=== PATIENT | female | born 1985 | race Caucasian/White ===

== ENCOUNTER 2017-07-10 14:30 | Emergency (ER) | payer OTHER ==
[~2017-07-10] VITALS: Ht 162.6 cm; Wt 86.0 kg
[~2017-07-10 14:30] MED LIST: IBUP-238 PO; Z.0.NO CURRENT MEDS
[2017-07-10 14:38] VITALS: BP 159/86; PULSE 119; RESP 18; TEMP 97.9; O2SAT 99
[2017-07-10] MEDS ORDERED: LIDOCAINE HCL 1% PF 30 ML VIAL INFIL ONE (15:00)
[2017-07-10] MEDS ORDERED: KETOROLAC TROMETHAMINE 30 MG/ML (IVP) VIAL IV PUSH ONE (15:00)
[2017-07-10] MEDS ORDERED: CLINDAMYCIN 600 MG/NS PREMIX 50 ML IV ONE (15:00)
[2017-07-10 15:56] LABS: AUTOMATED NEUTROPHIL # 9.6 TH/MM3 (1.8-7.7); BASOPHIL % 0.3 % (0.0-2.0); EOSINOPHIL # 0.1 TH/MM3 (0-0.4); EOSINOPHIL % 1.1 % (0.0-4.0); HEMATOCRIT 39.3 % (35.0-46.0); HEMOGLOBIN 13.3 GM/DL (11.6-15.3); LYMPH % 17.7 % (9.0-44.0); LYMPHOCYTE # 2.3 TH/MM3 (1.0-4.8); MEAN CORPUSCULAR HGB CONC 33.7 % (32.0-36.0); MEAN PLATELET VOLUME 8.6 FL (7.0-11.0); MONO % 6.4 % (0.0-8.0); MONOCYTE # 0.8 TH/MM3 (0-0.9); NEUT % 74.5 % (16.0-70.0); PLATELET COUNT 227 TH/MM3 (150-450); RED BLOOD COUNT 4.57 MIL/MM3 (4.00-5.30); RED CELL DISTRIBUTION WIDTH 13.9 % (11.6-17.2); WHITE BLOOD COUNT 12.9 TH/MM3 (4.0-11.0)
[2017-07-10 16:05] LABS: BICARBONATE 23.2 MEQ/L (21.0-32.0); CALCIUM 9.3 MG/DL (8.5-10.1); CREATININE 0.96 MG/DL (0.50-1.00); MAGNESIUM 2.3 MG/DL (1.5-2.5)
--- NOTE | 2017-07-10 16:07 | RADRPT ---
EXAM DATE: 07/10/2017 4:04 PM EDT AGE/SEX: 31 years / Female INDICATIONS: Left hand pain, no injury. CLINICAL DATA: This is the patient's initial encounter. Patient reports that signs and symptoms have been present for 1 day and indicates a pain score of 8/10. MEDICAL/SURGICAL HISTORY: None. None. COMPARISON: No prior [place] exams available for comparison. FINDINGS: Generalized soft tissue swelling. I see no radiopaque foreign body or fracture. Anatomic alignment. CONCLUSION: Generalized soft tissue swelling. Etiology not apparent. Electronically signed by: Flavio Simeon MD 07/10/2017 4:05 PM EDT
[2017-07-10] MEDS ORDERED: DICL75TA PO (16:43)
[2017-07-10] MEDS ORDERED: BACT800T5 PO (16:43)
[2017-07-10] MEDS ORDERED: CLIN150C14 PO (16:43)
--- NOTE | 2017-07-10 16:57 | PD ---
HPI Chief Complaint: Skin Problem Time Seen by Provider: 14:44 Travel History International Travel<30 days: No Contact w/Intl Traveler<30days: No Traveled to known affect area: No History of Present Illness HPI 31 year old female here for evaluation of infection to the left hand. Patient reports his started two days ago. Now having lesion to the nose. Tender and painful. History of abscesses. No IVDA. pain is 7/10. No fevers, chills or sweats. Up to date with tetanus. Has not seen anybody for this. No other medical issues. PFSH Past Medical History Blood Disorders: No Cancer: No Cardiovascular Problems: No Chemotherapy: No Diminished Hearing: No Endocrine: No Gastrointestinal Disorders: Yes (VOMITING) Genitourinary: No Immune Disorder: No Musculoskeletal: No Neurologic: No Psychiatric: No Reproductive: No Respiratory: No Immunizations Current: Yes Radiation Therapy: No Tetanus Vaccination: Unknown Influenza Vaccination: No ?: Not : 0 Para: 0 Miscarriage: 0 : 0 Past Surgical History Surgical History: No Previous Surgery AICD: No Arteriovenous Shunt: No Insulin Pump: No Joint Replacement: No Pacemaker: No Social History Alcohol Use: No Tobacco Use: Yes (OCC 02/10 DAY) Substance Use: No Allergies-Medications (Allergen,Severity, Reaction): Coded Allergies: No Known Allergies (Verified Adverse Reaction, Unknown, 07/10/17) Reported Meds & Prescriptions Reported Meds & Active Scripts Active Bactrim DS (Sulfamethoxazole-Trimethoprim) 800-160 Mg Tab 1 Tab PO BID 14 Days Clindamycin (Clindamycin HCl) 150 Mg Cap 300 Mg PO Q8HR [address] (Diclofenac Sodium) 75 Mg Tabdr 75 Mg PO BID PRN Review of Systems Except as stated in HPI: all other systems reviewed are Neg Physical Exam Narrative GENERAL: SKIN: Warm and dry. Has a 5 cm in diameter area of indurance and purulence on dorsal left hand. Tender to touch. Purulence noted. Erythema about 10 cms in diameter. No lymphadenopathy. Warm to touch. HEAD: Atraumatic. Normocephalic. EYES: Pupils equal and round. No scleral icterus. No injection or drainage. ENT: No nasal bleeding or discharge. Mucous membranes pink and moist. Tongue is mildine. No uvula deviation. patient has a circular erythematous papule on the bridge of the nose, about 0.5 cms in diameter. NECK: Trachea midline. No JVD. CARDIOVASCULAR: Regular rate and rhythm. RESPIRATORY: No accessory muscle use. Clear to auscultation. Breath sounds equal bilaterally. GASTROINTESTINAL: Abdomen soft, non-tender, nondistended. Hepatic and splenic margins not palpable. MUSCULOSKELETAL: Extremities without clubbing, cyanosis, or edema. No obvious deformities. NEUROLOGICAL: Awake and alert. No obvious cranial nerve deficits. Motor grossly within normal limits. Five out of 5 muscle strength in the arms and legs. Normal speech. PSYCHIATRIC: Appropriate mood and affect; insight and judgment normal. Data Data Last Documented VS Vital Signs Date Time Temp Pulse Resp B/P (MAP) Pulse Ox O2 Delivery O2 Flow Rate FiO2 07/10/17 14:38 97.9 119 18 159/86 (110) 99 Orders Orders Complete Blood Count With Diff (07/10/17 14:56) Basic Metabolic Panel (Bmp) (07/10/17 14:56) Blood Culture (07/10/17 14:56) Magnesium (Mg) (07/10/17 14:56) Wound Culture And Gram Stain (07/10/17 14:56) Iv Access Insert/Monitor (07/10/17 14:56) Lidocaine Pf 1% Inj (Xylocaine-Mpf 1% In (07/10/17 15:00) Clindamycin 600 Mg/Ns Premix (Cleocin 60 (07/10/17 15:00) Ketorolac Inj (Toradol Inj) (07/10/17 15:00) Hand, Complete ([id number]) (07/10/17 ) Ed Discharge Order (07/10/17 16:46) Labs Laboratory Tests Test 07/10/17 15:10 White Blood Count 12.9 TH/MM3 Red Blood Count 4.57 MIL/MM3 Hemoglobin 13.3 GM/DL Hematocrit 39.3 % Mean Corpuscular Volume 86.0 FL Mean Corpuscular Hemoglobin 29.0 PG Mean Corpuscular Hemoglobin Concent 33.7 % Red Cell Distribution Width 13.9 % Platelet Count 227 TH/MM3 Mean Platelet Volume 8.6 FL Neutrophils (%) (Auto) 74.5 % Lymphocytes (%) (Auto) 17.7 % Monocytes (%) (Auto) 6.4 % Eosinophils (%) (Auto) 1.1 % Basophils (%) (Auto) 0.3 % Neutrophils # (Auto) 9.6 TH/MM3 Lymphocytes # (Auto) 2.3 TH/MM3 Monocytes # (Auto) 0.8 TH/MM3 Eosinophils # (Auto) 0.1 TH/MM3 Basophils # (Auto) 0.0 TH/MM3 CBC Comment DIFF FINAL Differential Comment Blood Urea Nitrogen 12 MG/DL Creatinine 0.96 MG/DL Random Glucose 116 MG/DL Calcium Level 9.3 MG/DL Magnesium Level 2.3 MG/DL Sodium Level 139 MEQ/L Potassium Level 3.8 MEQ/L Chloride Level 104 MEQ/L Carbon Dioxide Level 23.2 MEQ/L Anion Gap 12 MEQ/L Estimat Glomerular Filtration Rate 68 ML/MIN MDM Medical Decision Making Medical Screen Exam Complete: Yes Emergency Medical Condition: Yes Medical Record Reviewed: Yes Interpretation(s) Last Impressions Hand X-Ray 07/10/17 0000 Signed Impressions: CONCLUSION: Generalized soft tissue swelling. Etiology not apparent. CBC & BMP Diagram 07/10/17 15:10 Calcium Level 9.3, Magnesium Level 2.3 Differential Diagnosis abscess vs cellulitis vs MRSA Narrative Course 31 yo female here for hand infection. Properly examined and found to have cellulitis and abscess to left dorsal hand. Labs and imaging ordered. I&D done as stated in procedure note after patient gave verbal concent. Given IV clindamycin. Case discussed with attending Dr Badillo who agrees with discharge. Will prescribe diclofenac sodium, bactrim and clindamyin. Recheck in 48 hours. F/u with PCP. See ED if worst. Procedures Procedure Narrative After the risks and benefits were discussed the following procedure was performed: INCISION AND DRAINAGE OF ABSCESS: The area was prepped and was sterilely draped. A subcutaneous wheal of 1 % Xylocaine with a total number 5 mL was used to anesthetize the area. The area was properly anesthetized. A number 11 scalpel was used to make a 1 -cm incision across the area of the abscess. Cultures were obtained. The abscess was drained an irrigated with normal saline. Quarter inch iodoform packing was placed in the wound. Sterile dressing applied. Patient advised to have packing removed in two days. Diagnosis Primary Impression: Abscess of hand, left Patient Instructions: General Instructions Additional Instructions: Take medication as prescribed. Follow up with PCP. Recheck in 48 hrs. See ED if worsening symptoms. Med/Other Pt SpecificInfo: Prescription(s) given, Wound Care Scripts Sulfamethoxazole-Trimethoprim (Bactrim DS) 800-160 Mg Tab 1 TAB PO BID for Infection for 14 Days, #28 TAB 0 Refills Prov: Bryan Badillo MD 07/10/17 Clindamycin (Clindamycin) 150 Mg Cap 300 MG PO Q8HR for Infection for 14 Days, CAP 0 Refills Prov: Bryan Badillo MD 07/10/[address] (Diclofenac Sodium DR) 75 Mg Tabdr 75 MG PO BID Y for PAIN SCALE 1 TO 10, #20 TAB 0 Refills Prov: Bryan Badillo MD 07/10/17 Disposition: 01 DISCHARGE HOME Condition: Stable Mu Parker Jul 10, 2017 16:57
[2017-07-10 17:19] VITALS: BP 145/80; PULSE 95; RESP 16; O2SAT 98
== END 2017-07-10 17:21 | disposition home or self-care (01) ==
LOC: NEPE 14:30
DX: L02.512 Cutaneous abscess of left hand (principal); F17.200 Nicotine dependence, unspecified, uncomplicated; B95.62 Methicillin resistant Staphylococcus aureus infection as the cause of diseases classified elsewhere
CPT/HCPCS: 10060; 73130; 80048; 83735; 85025; 86403; 87040; 87070; 87186; 96374; 96375; 99284; J1885; 87205